=== PATIENT | female | born 1995 | race Two or more races ===

== ENCOUNTER 2018-08-02 05:36 | Emergency (ER) | payer MEDICAID ==
[~2018-08-02] VITALS: Ht 162.6 cm; Wt 54.4 kg
[2018-08-02] MEDS ORDERED: SODIUM CHLORIDE 0.9% 1,000 ML IV ONE ×2 (07:01)
[2018-08-02] MEDS ORDERED: PROCHLORPERAZINE EDISYLATE 5 MG/ML 2ML VIAL IV ONE (07:15)
[2018-08-02] MEDS ORDERED: KETOROLAC TROMETH 30 MG/ML 1ML VIAL IV ONE (07:15)
[2018-08-02 07:23] LABS: Basophils # (auto) 0.1 uL; Basophils % (auto) 0.4 % (0.0-2.0); Eosinophils # (auto) 0.1 uL; Eosinophils % (auto) 0.6 % (0.0-7.0); Hematocrit 40.8 % (36.0-46.0); Hemoglobin 13.5 g/dL (12.2-16.2); Lymphocytes # (auto) 1.7 uL; Mean Corpuscular Hemoglobin 28.1 pg (28.0-32.0); Monocytes # (auto) 0.6 uL; Monocytes % (auto) 4.3 % (0.0-12.0); Neutrophils # (auto) 11.9 uL; Neutrophils % (auto) 82.7 % (37.0-80.0); Platelet Count (auto) 237 10^3/uL (140-450); Red Cell Distribution Width 13.9 % (11.8-14.3); White Blood Cell 14.4 10^3/uL (4.4-10.8)
[2018-08-02 07:40] LABS: INR 0.96 (0.9-1.15); Partial Thromboplastin Time 26.8 sec (23.78-33.04); Prothrombin Time 10.3 sec (9.27-12.13)
[2018-08-02 07:41] LABS: Potassium 3.4 mmol/L (3.5-5.1)
[2018-08-02 07:42] LABS: Urine Bacteria MOD /hpf (None Seen); Urine Blood 1+ /uL (Negative); Urine Mucus FEW (None Seen); Urine Specific Gravity 1.026 (1.001-1.035); Urine WBC 599 /hpf (0 - 5); Urine WBC Clumps PRESENT /hpf (None Seen)
[2018-08-02 07:48] LABS: Albumin 3.8 g/dL (3.4-5.0); BUN/Creatinine Ratio 8.9; Bilirubin, Total 0.4 mg/dL (0.2-1.0); Calcium 8.8 mg/dL (8.5-10.1); Total Protein 7.4 g/dL (6.4-8.2)
[2018-08-02 08:00] VITALS: BP 127/66
[2018-08-02 08:07] LABS: Alcohol, Urine < 3.0 mg/dL (0-5); Amphetamine Screen, Urine POSITIVE (NEGATIVE); Barbiturate Scree,Urine NEGATIVE (NEGATIVE); Benzodiazephine Screen, Urine NEGATIVE (NEGATIVE); Cannabinoid Screen, Urine POSITIVE (NEGATIVE); Cocaine Screen, Urine NEGATIVE (NEGATIVE); Opiate Scree,Urine POSITIVE (NEGATIVE); Phencyclidine Screen, Urine NEGATIVE (NEGATIVE)
[2018-08-02] MEDS ORDERED: POTASSIUM EFFERVESENT TAB 25 MEQ PO ONE (09:15)
== END 2018-08-02 09:15 | disposition home or self-care (01) ==
LOC: ER 05:36
DX: N39.0 Urinary tract infection, site not specified (principal); E87.6 Hypokalemia; K92.0 Hematemesis; F17.210 Nicotine dependence, cigarettes, uncomplicated; F12.10 Cannabis abuse, uncomplicated; F15.10 Other stimulant abuse, uncomplicated
CPT/HCPCS: 36415; 71046; 74176; 80053; 80307; 81001; 84702; 85025; 85610; 85730; 96361; 96374; 96375; 99284; J0780; J1885; J7030

== ENCOUNTER 2020-04-07 02:07 | Emergency (ER) | payer MEDICAID ==
[~2020-04-07] VITALS: Ht 170.2 cm; Wt 59.0 kg
[2020-04-07] MEDS ORDERED: ACETAMINOPHEN 500 MG TAB PO ONE ×2 (02:45→03:00)
[2020-04-07 07:13] VITALS: BP 111/80
== END 2020-04-07 07:20 | disposition home or self-care (01) ==
LOC: EDBD 02:07 → ER 02:07
DX: J01.00 Acute maxillary sinusitis, unspecified (principal); K02.9 Dental caries, unspecified; R51.9 Headache, unspecified; F17.210 Nicotine dependence, cigarettes, uncomplicated
CPT/HCPCS: 70450